=== PATIENT | male | born 1960 | race Caucasian/White ===

== ENCOUNTER 2020-04-28 14:07 | Emergency (ER) | payer OTHER, SELFPAY ==
[2020-04-28 14:08] VITALS: BP 164/94; PULSE 85; RESP 18; TEMP 36.4; O2SAT 100
--- NOTE | 2020-04-28 14:52 | ED.UPPEXIN ---
HPI - Extremity Injury (Upper) General Chief Complaint: Extremity Injury, Upper Stated Complaint: right thumb laceration Time Seen by Provider: 04/28/20 14:21 Source: patient Mode of arrival: ambulatory Limitations: no limitations History of Present Illness HPI narrative: This is a 60 year old male that presents to the ER for laceration to right 1st finger sustained yesterday. Reports he cut his finger on a mandolin. He is up-to-date on tetanus. Reports he put gauze on the finger to control the bleeding, and now it is stuck. Denies fever. Related Data Home Medications Medication Instructions Recorded Confirmed amlodipine 20 mg PO DAILY 04/28/20 omeprazole 20 mg PO DAILY 04/28/20 Allergies Allergy/AdvReac Type Severity Reaction Status Date / Time No Known Allergies Allergy Verified 04/28/20 14:18 Review of Systems Review of Systems: Narrative: CONSTITUTIONAL: Denies fever SKIN: Reports laceration All systems reviewed & are unremarkable except as noted in HPI and below PMFSH Past Medical History Medical History (Updated 04/28/20 @ 15:04 by Bri Guerin PA-C) History of hyperlipidemia History of hypertension Social History Social History Gender identity (if verbalized by the patient): Male Exam Narrative: Exam Narrative: GENERAL: Well-appearing, well-nourished, and in no acute distress. HEAD: Normocephalic, atraumatic. EYES: EOMI. EXTREMITIES: Normal range of motion. No edema or obvious deformity. Right first finger tip with 1cm circular avulsion injury SKIN: Warm, dry, no rash. NEURO: No focal deficits. Alert and oriented x3. PSYCH: Normal mood and affect Course Vital Signs Vital signs: Vital Signs Temperature 97.5 F L 04/28/20 14:08 Pulse Rate 85 04/28/20 14:08 Respiratory Rate 18 04/28/20 14:08 Blood Pressure 164/94 H 04/28/20 14:08 Pulse Oximetry 100 04/28/20 14:08 Temperature 97.5 F L 04/28/20 14:08 Pulse Rate 85 04/28/20 14:08 Respiratory Rate 18 04/28/20 14:08 Blood Pressure 164/94 H 04/28/20 14:08 Pulse Oximetry 100 04/28/20 14:08 Procedures Laceration Laceration 1: Date: 04/28/20 Time: 15:01 Site: hand Side (If applicable): right Size (cm): 1 Description: other (Avulsion) Pre-repair: irrigated ====== Skin Level ====== ====== Subcutaneous Layer ====== ====== Muscle Layer ====== ====== Tendon Layer ====== Dressing: Wound irrigated and bleeding controlled with Surgicel. Bandaged with Kerlix and Coban MDM - Extremity Injury (Upper) MDM Narrative Medical decision making narrative: Patient presents the emergency department for laceration sustained yesterday. Wound was irrigated and bleeding controlled with Surgicel. Wound was bandaged. He is up-to-date on tetanus. Will be given prophylactic antibiotic. Was instructed on wound care. He is to follow-up with primary care doctor. He was given warnings to return to the ER Critical Care Time Critical Care Time Critical Care Time: No Discharge Plan Discharge Clinical Impression: Laceration Patient Disposition: Home, Self-Care Condition: Stable Instructions: Antibiotic Form, Laceration (ED), Skin Avulsion (ED) Additional Instructions: Return to the emergency department if you experience fever, redness or swelling of your wound, abnormal drainage from your wound, or any other symptoms that are concerning to you. Leave bottom layer of gauze on until it falls off. Change top bandage daily Follow-up with your primary care doctor Prescriptions: No Action amlodipine 10 mg Tablet 20 mg PO DAILY RF: 0 omeprazole 20 mg Capsule,Delayed Release(Dr/Ec) 20 mg PO DAILY RF: 0 Follow-up/Referrals: Sabrina,Anirudh Rosales MD [Primary Care Provider] - 1 Week
== END 2020-04-28 15:25 | disposition home or self-care (01) ==
PROVIDERS: Emergency Provider Emergency Medicine; PCP Internal Medicine Infectious Disease
DX: S61.011A Laceration without foreign body of right thumb without damage to nail, initial encounter (principal); E78.5 Hyperlipidemia, unspecified; I10 Essential (primary) hypertension; W27.4XXA Contact with kitchen utensil, initial encounter
CPT/HCPCS: 12001; 99282